=== PATIENT | female | born 1945 | race Caucasian/White ===

== ENCOUNTER 2016-03-09 15:00 | Inpatient (IN) | payer MEDICARE ==
[2016-03-09 21:00] VITALS: BP 162/81; PULSE 68; PULSE 72; RESP 18; TEMP 98.7; O2SAT 96
--- NOTE | 2016-03-09 21:06 | HHI.HP ---
History of Present Illness Chief Complaint: left foot pain and paresthesias after catheterization last week for left SFA in- stent restenosis.([place]) History of Present Illness 70 yr old female with hx of hypertension, DM, hyperlipidemia and tobacco use who has had pad symptoms of 1/2 block claudication treated with antiplatelet meds, antihypertensives and pletal with tobacco cessation 8 years ago. Peripheral interventions of her bilateral lower extremities for [address] Puentes. Most recent left SFA intervention (no report) with finding of left SFA in-stent restenosis and two vessel runoff via AT and Peroneal arteries. (CD:angio 03/08) Intervention to left lower extremity performed 7 days ago with pain and paresthesias post-procedure. Hospitalized 4 days ago and now on heparin drip and referred to us for evaluation. Past/Family/Social History Past Medical History DM Hyperlipidemia HTN PAD Past Surgical History LLE angioplasty Social History Occasional alcohol use. Family History Denies Coded Allergies: No Known Allergies (Unverified , 03/09/16) see list Family History with two children ([place]) Resides in [facility] Social History Occasional ETOH 50 pack year smoking hx (quit 8 yrs ago). Review of Systems Musculoskeletal: COMPLAINS OF: Joint pain, Muscle aches (left foot), Stiffness , Joint Swelling, Back pain, Neck pain Physical Exam Neuro: CN2-12 intact. Gross motor and sensory intact upper and lower extremities Can Dorsiflex without pain and move toes. Neck: no carotid bruits Heart: no murmurs, rubs or gallops Lungs: CTA bilaterally Abdomen: soft, ND Vascular: Radial pulses palpable bilaterally. multiphasic signals DP bilaterally. Monophasic signals PT bilaterally. Extremities: Left foot is warm. Two pea-sized lesions over the dorsum of the foot. Assessment and Plan Assessment: (1) PAD (peripheral artery disease) Status: Acute Plan Patient with PAD with multiple interventions with claudication. Now patient with reperfused left lower extremity.(warm with strong signals). With multiple failed interventions with in-stent restenosis we were consulted for possible bypass. Presently left lower extremity viable and reperfused. Suspect ischemia- reperfusion injury. Patient admitted for medical management with evaluation for future bypass. Will be restarted on home medication and add GI protection. Would continue pain medications Physical therapy. With multiple failed previous interventions will continue anticoagulation. Hardik Gonzales DO, FACS Video Control Operator of Vascular Surgery /[facility] [phone] Hardik Gonzales DO Mar 09, 2016 21:06
[2016-03-09 21:23] LABS: AUTOMATED NEUTROPHIL # 6.5 TH/MM3 (1.8-7.7); BASOPHIL # 0.1 TH/MM3 (0-0.2); BASOPHIL % 0.7 % (0.0-2.0); EOSINOPHIL # 0.1 TH/MM3 (0-0.4); EOSINOPHIL % 1.3 % (0.0-4.0); HEMATOCRIT 33.5 % (35.0-46.0); HEMO FLAGS DIFF FINAL; LYMPH % 11.2 % (9.0-44.0); LYMPHOCYTE # 0.9 TH/MM3 (1.0-4.8); MEAN CELL VOLUME 82.1 FL (80.0-100.0); MONO % 9.2 % (0.0-8.0); NEUT % 77.6 % (16.0-70.0); PLATELET COUNT 273 TH/MM3 (150-450); RED BLOOD COUNT 4.08 MIL/MM3 (4.00-5.30); RED CELL DISTRIBUTION WIDTH 13.8 % (11.6-17.2); WHITE BLOOD COUNT 8.4 TH/MM3 (4.0-11.0)
[2016-03-09 21:37] LABS: APTT (PATIENT) 29.4 SEC (24.3-30.1); PROTHROMBIN TIME - PATIENT 10.7 SEC (9.8-11.6)
[2016-03-09 22:00] VITALS: PULSE 75
[2016-03-09 22:00] LABS: BICARBONATE 29.3 MEQ/L (21.0-32.0); MAGNESIUM 1.4 MG/DL (1.5-2.5); POTASSIUM 3.5 MEQ/L (3.5-5.1)
[2016-03-09 23:00] VITALS: PULSE 77
[2016-03-09] MEDS ORDERED: SODIUM CHLORIDE FLUSH PRN IVF (23:00)
[2016-03-09] MEDS: DEXT 5%-NACL 0.9% 1000 ML INJ 1,000 ML IV SCH (23:00)
[2016-03-09] MEDS ORDERED: GLUCAGON 1 MG/ML VIAL OTHER PRN (23:00)
[2016-03-09] MEDS ORDERED: HEPARIN SODIUM - IV 10,000 UNITS/10 ML VIAL IV PRN ×2 (23:00)
[2016-03-09] MEDS ORDERED: DEXTROSE 50% IN WATER 50 ML VIAL(D50) IV PUSH PRN (23:00)
[2016-03-09] MEDS: metFORMIN HCL 500 MG TAB PO SCH (23:00)
[2016-03-09] MEDS: HEPARIN 25,000 UNITS-D5W 250 ML - PREMIX IV SCH (23:09)
[2016-03-09] MEDS: ATORVASTATIN 20 MG TAB PO SCH (23:13)
[2016-03-09] MEDS: ACETAMINOPHEN/HYDROcodone 325 MG/5 MG TAB PO PRN (23:14)
[2016-03-10] VITALS (22 sets, daily range): BP systolic 125–170; BP diastolic 64–83; PULSE 60–122; RESP 18; TEMP 97.5–99.2; O2SAT 95–98
[2016-03-10] MEDS: LOW DOSE INSULIN NOVOLOG SUPPLEMENTAL SCALE SQ SCH ×4 (05:56→20:43)
[2016-03-10 06:33] LABS: APTT (PATIENT) 40.8 SEC (24.3-30.1)
[2016-03-10] MEDS: SODIUM CHLORIDE FLUSH BID IVF SCH ×2 (09:00→20:34)
--- NOTE | 2016-03-10 09:06 | PD.VS.PN ---
Objective Vitals/I&O Date Time Temp Pulse Resp B/P Pulse Ox O2 Delivery O2 Flow Rate FiO2 03/10/16 07:00 97.7 62 18 141/70 95 03/10/16 06:00 72 03/10/16 05:00 66 03/10/16 04:00 61 03/10/16 04:00 98.7 77 18 161/83 98 03/10/16 03:00 66 03/10/16 02:00 72 03/10/16 01:00 72 03/10/16 00:00 65 03/10/16 00:00 98.5 79 18 170/78 98 03/09/16 23:00 77 03/09/16 22:00 75 03/09/16 21:00 68 03/09/16 21:00 98.7 72 18 162/81 96 Physical Exam feet warm bilaterally. Bilateral DP signals phasic. Laboratory Laboratory Tests Test 03/09/16 03/10/16 21:00 05:00 White Blood Count 8.4 Red Blood Count 4.08 Hemoglobin 11.0 Hematocrit 33.5 Mean Corpuscular Volume 82.1 Mean Corpuscular Hemoglobin 27.0 Mean Corpuscular Hemoglobin 33.0 Concent Red Cell Distribution Width 13.8 Platelet Count 273 Mean Platelet Volume 8.0 Neutrophils (%) (Auto) 77.6 Lymphocytes (%) (Auto) 11.2 Monocytes (%) (Auto) 9.2 Eosinophils (%) (Auto) 1.3 Basophils (%) (Auto) 0.7 Neutrophils # (Auto) 6.5 Lymphocytes # (Auto) 0.9 Monocytes # (Auto) 0.8 Eosinophils # (Auto) 0.1 Basophils # (Auto) 0.1 CBC Comment DIFF FINAL Differential Comment Prothrombin Time 10.7 Prothromb Time International 1.0 Ratio Activated Partial 29.4 40.8 Thromboplast Time Sodium Level 140 Potassium Level 3.5 Chloride Level 102 Carbon Dioxide Level 29.3 Anion Gap 9 Blood Urea Nitrogen 12 Creatinine 1.18 Estimat Glomerular Filtration 45 Rate Random Glucose 88 Calcium Level 9.5 Phosphorus Level 2.0 Magnesium Level 1.4 Assessment and Plan Assessment: (1) PAD (peripheral artery disease) Status: Acute Plan Patient with PAD with multiple interventions with claudication. Need for possible bypass left lower extremity for recurrent in-stent restenoses. Plan for follow duplex US of bilateral lower extremities Plan for angiogram tomorrow. Hardik Gonzales DO, FACS Loan Interviewer Mortgage of Vascular Surgery /[facility] [phone] Hardik Gonzales DO Mar 10, 2016 09:06
[2016-03-10] MEDS: ACETAMINOPHEN/HYDROcodone 325 MG/5 MG TAB PO PRN ×2 (09:09→20:52)
[2016-03-10] MEDS: glipiZIDE 10 MG TAB PO SCH (09:10)
[2016-03-10] MEDS: HYDROCHLOROTHIAZIDE 12.5 MG CAP PO SCH (09:10)
[2016-03-10] MEDS: LOSARTAN 50 MG TAB PO SCH (09:10)
[2016-03-10] MEDS: PANTOPRAZOLE SOD 40 MG DELAYED RELEASE TAB PO SCH (09:10)
[2016-03-10] MEDS: CLOPIDOGREL 75 MG TAB PO SCH (09:10)
[2016-03-10] MEDS: metFORMIN HCL 500 MG TAB PO SCH ×2 (09:10→20:51)
--- NOTE | 2016-03-10 12:36 | RADRPT ---
EXAM DATE/TIME: 03/10/2016 11:08 [facility] COMPARISON: No previous studies available for comparison. INDICATIONS : Lower extremity bypass Preop. MEDICAL HISTORY : Hypertension. PAD. Diabetic. Hyperlipidemia. SURGICAL HISTORY : Left lower extremity angioplasty. ENCOUNTER: Initial ACUITY: 1 week PAIN SCORE: 8/10 LOCATION: Bilateral leg. TECHNIQUE: Venous ultrasound of the left and right leg was performed from the inguinal ligament to the proximal calf. Real-time, color Doppler and spectral tracing, compression and augmentation techniques were us ed. FINDINGS: RIGHT LEG: There is normal compressibility of the deep venous system from the inguinal region to the proximal ca lf. No echogenic clot is seen in the lumen of the common femoral, femoral, popliteal, and posterior tibial veins. There is a normal response of the venous system to proximal and distal augmentation an d respiration. LEFT LEG: There is normal compressibility of the deep venous system from the inguinal region to the proximal ca lf. No echogenic clot is seen in the lumen of the common femoral, femoral, popliteal, and posterior tibial veins. There is a normal response of the venous system to proximal and distal augmentation an d respiration. CONCLUSION: Normal examination. Bharati Vargas MD on March 10, 2016 at 12:33 Board Certified Radiologist. This report was verified electronically.
--- NOTE | 2016-03-10 12:52 | RADRPT ---
EXAM DATE/TIME: 03/10/2016 11:23 [facility] COMPARISON: No previous studies available for comparison. INDICATIONS : Lower extremity bypass Preop. MEDICAL HISTORY : CAD, Diabetic. Hypertension. Hyperlipidemia. SURGICAL HISTORY : Left lower extremity angioplasty. ENCOUNTER: Initial ACUITY: 1 week PAIN SCORE: 8/10 LOCATION: Bilateral leg. GREATER SAPHENOUS VEIN THIGH: PROXIMAL: Right 5 mm Left 4 mm MID: Right 2 mm Left 2 mm DISTAL: Right 2 mm Left 2 mm CALF: PROXIMAL: Right 2 mm Left 4 mm MID: Right 2 mm Left 3 mm DISTAL: Right 2 mm Left 2 mm FINDINGS: The venous system of the lower extremities are patent by color Doppler imaging. Measurements of the leg veins (in mm) are listed above. CONCLUSION: Venous mapping as described above. Aquilino Montenegro MD FACR on March 10, 2016 at 12:50 Board Certified Radiologist. This report was verified electronically.
[2016-03-10] MEDS: DEXT 5%-NACL 0.9% 1000 ML INJ 1,000 ML IV SCH (13:31)
--- NOTE | 2016-03-10 18:38 | PD.VS.PN ---
Pre-operative Note Pre-operative diagnosis: PAD, L LE Planned procedure: Aortogram w/ L LE angiogram Labs: Laboratory Tests Test 03/09/16 03/10/16 03/10/16 21:00 05:00 10:52 White Blood Count 8.4 Red Blood Count 4.08 Hemoglobin 11.0 Hematocrit 33.5 Mean Corpuscular Volume 82.1 Mean Corpuscular Hemoglobin 27.0 Mean Corpuscular Hemoglobin 33.0 Concent Red Cell Distribution Width 13.8 Platelet Count 273 Mean Platelet Volume 8.0 Neutrophils (%) (Auto) 77.6 Lymphocytes (%) (Auto) 11.2 Monocytes (%) (Auto) 9.2 Eosinophils (%) (Auto) 1.3 Basophils (%) (Auto) 0.7 Neutrophils # (Auto) 6.5 Lymphocytes # (Auto) 0.9 Monocytes # (Auto) 0.8 Eosinophils # (Auto) 0.1 Basophils # (Auto) 0.1 CBC Comment DIFF FINAL Differential Comment Prothrombin Time 10.7 Prothromb Time International 1.0 Ratio Activated Partial 29.4 40.8 41.0 Thromboplast Time Sodium Level 140 Potassium Level 3.5 Chloride Level 102 Carbon Dioxide Level 29.3 Anion Gap 9 Blood Urea Nitrogen 12 Creatinine 1.18 Estimat Glomerular Filtration 45 Rate Random Glucose 88 Calcium Level 9.5 Phosphorus Level 2.0 Magnesium Level 1.4 Blood: none needed EKG: not needed Imaging: Last 48 hours Impressions Lower Extremity Ultrasound 03/10/16 0000 Signed Impressions: Service Date/Time: Thursday, March 10, 2016 11:08 - CONCLUSION: Normal examination. Bharati Vargas MD Lower Extremity Ultrasound 03/10/16 0000 Signed Impressions: Service Date/Time: Thursday, March 10, 2016 11:23 - CONCLUSION: Venous mapping as described above. Aquilino Montenegro MD FACR Post-operative destination: DOCU, then floor Operative site marked: No (Will francis in AM (Day of surgery)) Consent: I discussed the procedure with the patient and she agrees Sushant Samuels MD Mar 10, 2016 18:38
[2016-03-10] MEDS: ATORVASTATIN 20 MG TAB PO SCH (20:52)
[2016-03-11] VITALS (20 sets, daily range): BP systolic 110–158; BP diastolic 58–72; PULSE 66–76; RESP 17–18; TEMP 96.7–98.9; O2SAT 93–98
[2016-03-11] MEDS: DEXT 5%-NACL 0.9% 1000 ML INJ 1,000 ML IV SCH ×3 (01:40→22:28)
[2016-03-11 06:18] LABS: APTT (PATIENT) 50.6 SEC (24.3-30.1)
[2016-03-11] MEDS: LOW DOSE INSULIN NOVOLOG SUPPLEMENTAL SCALE SQ SCH ×4 (06:21→20:33)
--- NOTE | 2016-03-11 07:42 | PD.VS.PN ---
Subjective Subjective/Hospital Course Pt feels well today. Foot hurt slightly overnight but walked to BR without difficulty. Motor intact. Objective Vitals/I&O Date Time Temp Pulse Resp B/P Pulse Ox O2 Delivery O2 Flow Rate FiO2 03/11/16 06:00 71 03/11/16 04:00 98.9 71 18 139/65 93 03/11/16 04:00 71 03/11/16 01:00 71 03/11/16 00:00 71 03/10/16 23:00 98.8 71 18 140/64 98 03/10/16 19:00 75 03/10/16 19:00 99.2 75 18 156/68 98 03/10/16 18:00 77 03/10/16 17:00 72 03/10/16 16:00 72 03/10/16 15:00 68 03/10/16 15:00 97.5 66 18 139/64 95 03/10/16 14:00 67 03/10/16 13:00 70 03/10/16 12:00 68 03/10/16 11:00 67 03/10/16 11:00 97.7 72 18 125/76 97 03/10/16 10:00 67 03/10/16 09:00 72 03/10/16 08:00 60 03/11/16 03/11/16 03/11/16 07:00 15:00 23:00 Intake Total 1068 ml Balance 1068 ml Physical Exam Palpable femoral pulse Foot chronically moderately ischemic. Motor intact. No tissue loss. + atrophic muscles but no rubor Laboratory Laboratory Tests Test 03/10/16 03/11/16 10:52 05:29 Activated Partial 41.0 50.6 Thromboplast Time Imaging Last 48 hours Impressions Lower Extremity Ultrasound 03/10/16 0000 Signed Impressions: Service Date/Time: Thursday, March 10, 2016 11:08 - CONCLUSION: Normal examination. Bharati Vargas MD Lower Extremity Ultrasound 03/10/16 0000 Signed Impressions: Service Date/Time: Thursday, March 10, 2016 11:23 - CONCLUSION: Venous mapping as described above. Aquilino Montenegro MD FACR Assessment and Plan Assessment: (1) PAD (peripheral artery disease) Status: Chronic Plan Patient with PAD with multiple interventions Now with pain that may be rest pain but I don't think so. ABIs today Angiogram today. potential d/c tomorrow. Discharge Planning possible 03/12 Sushant Samuels MD Mar 11, 2016 07:42
[2016-03-11] MEDS: SODIUM CHLORIDE FLUSH BID IVF SCH ×2 (09:00→20:26)
--- NOTE | 2016-03-11 09:52 | RADRPT ---
EXAM DATE/TIME: 03/11/2016 00:00 [facility] COMPARISON: No previous studies available for comparison. INDICATIONS : BL PVD LEFT LEG WORSE THAN RIGHT TECHNIQUE: Five-station segmental examination of the lower extremities was performed. Pulsed-cuff waveform tracings and pressures were recorded. Ankle-brachial indices and toe-brachial indices were calculated. PRESSURES (mmHg): Brachial (arm): Right 144 Lower Thigh: Right 84 Left 110 Calf: Right 63 Left 68 Ankle: Right 42 Left 51 Toe: Right 0 Left 26 [place]: Right 0.29 Left 0.35 TBI: Right 0 Left 0.18 PULSED CUFF WAVEFORMS: Demonstrate normal amplitude bilaterally. CONCLUSION: Markedly diminished ABIs with segmental pressures indicative of hemodynamically significant steno-occ lusive arterial disease in the iliac and infrapopliteal vessels. Jacob Michele MD on March 11, 2016 at 9:48 Board Certified Radiologist. This report was verified electronically.
[2016-03-11] MEDS: LOSARTAN 50 MG TAB PO SCH (09:55)
[2016-03-11] MEDS: PANTOPRAZOLE SOD 40 MG DELAYED RELEASE TAB PO SCH (09:55)
[2016-03-11] MEDS: CLOPIDOGREL 75 MG TAB PO SCH (09:55)
[2016-03-11] MEDS: HYDROCHLOROTHIAZIDE 12.5 MG CAP PO SCH (09:55)
[2016-03-11] MEDS: metFORMIN HCL 500 MG TAB PO SCH ×2 (09:55→20:27)
[2016-03-11] MEDS: glipiZIDE 10 MG TAB PO SCH (12:20)
[2016-03-11] MEDS: HEPARIN 25,000 UNITS-D5W 250 ML - PREMIX IV SCH (12:21)
[2016-03-11] MEDS ORDERED: MIDAZOLAM HCL 2 MG/2 ML VIAL ONE (12:47)
[2016-03-11] MEDS ORDERED: HEPARIN-NS/PF INJ 500 ML ONE (12:47)
[2016-03-11] MEDS ORDERED: IOHEXOL 350 MG/ML 100 ML BTL (for Cath Lab) OTHER ONE (13:00)
--- NOTE | 2016-03-11 13:15 | HHI.PR ---
Immediate Post Op Note Procedure Date: Mar 11, 2016 Pre Op Diagnosis: (1) PAD (peripheral artery disease) Post Op Diagnosis: (1) PAD (peripheral artery disease) Surgeon: Sushant Samuels Marketing Analytics Manager(s): none Procedure: Aortogram w/ L LE angiogram Findings: No Aorto-iliac occlusive disease Occluded L SFA with stents Re-constituted popliteal artery Peroneal artery dominant runoff Will need L fem-BK pop bypass Additional Information: if her foot is ok tonight, she wants to go home tomorrow and I'll bring her to clinic to discuss timing of surgery Complications: none apparent Specimen(s) removed: none Estimated blood loss: 10 mL Anesthesia: MAC Drains: None Patient to: Other (DOCU) Patient Condition: Good Implant/Devices: SEE IMPLANT LOG (if applicable) Date/Time of Procedure: SEE SURGICAL CARE RECORD Sushant Samuels MD Mar 11, 2016 13:15
[2016-03-11] MEDS ORDERED: MORPHINE SULFATE 4 MG/ML INJ IV PUSH PRN (15:00)
[2016-03-11] MEDS ORDERED: ONDANSETRON HCL 4 MG/2 ML VIAL IV PUSH PRN (15:00)
[2016-03-11] MEDS: ATORVASTATIN 20 MG TAB PO SCH (20:27)
[2016-03-11] MEDS: ACETAMINOPHEN/HYDROcodone 325 MG/5 MG TAB PO PRN (20:33)
[2016-03-12] VITALS: PULSE 68
[2016-03-12 04:00] VITALS: BP 145/66; PULSE 70; RESP 18; TEMP 98.9; O2SAT 97
[2016-03-12 05:00] VITALS: PULSE 70
[2016-03-12] MEDS: LOW DOSE INSULIN NOVOLOG SUPPLEMENTAL SCALE SQ SCH ×2 (05:48→11:00)
[2016-03-12 07:00] VITALS: BP 142/67; PULSE 64; PULSE 74; RESP 20; TEMP 97.7; O2SAT 97
[2016-03-12 07:26] LABS: HEMATOCRIT 30.1 % (35.0-46.0); MEAN CELL VOLUME 83.1 FL (80.0-100.0); MEAN CORPUSCULAR HEMOGLOBIN 27.5 PG (27.0-34.0); MEAN CORPUSCULAR HGB CONC 33.1 % (32.0-36.0); PLATELET COUNT 273 TH/MM3 (150-450); RED BLOOD COUNT 3.62 MIL/MM3 (4.00-5.30); REVIEW FLAG FINAL; WHITE BLOOD COUNT 8.7 TH/MM3 (4.0-11.0)
[2016-03-12 07:38] LABS: APTT (PATIENT) 28.1 SEC (24.3-30.1)
[2016-03-12] MEDS: metFORMIN HCL 500 MG TAB PO SCH (09:00)
[2016-03-12] MEDS: glipiZIDE 10 MG TAB PO SCH (09:00)
[2016-03-12] MEDS: PANTOPRAZOLE SOD 40 MG DELAYED RELEASE TAB PO SCH (09:54)
[2016-03-12] MEDS: LOSARTAN 50 MG TAB PO SCH (09:55)
[2016-03-12] MEDS: CLOPIDOGREL 75 MG TAB PO SCH (09:56)
[2016-03-12] MEDS: HYDROCHLOROTHIAZIDE 12.5 MG CAP PO SCH (09:56)
[2016-03-12] MEDS: SODIUM CHLORIDE FLUSH BID IVF SCH (09:56)
--- NOTE | 2016-03-12 09:57 | PD.VS.DC ---
Discharge Summary Admission Date: Mar 09, 2016 at 15:00 Discharge Date: Mar 12, 2016 Admission Diagnosis: (1) PAD (peripheral artery disease) Discharge Diagnosis: (1) PAD (peripheral artery disease) Status: Chronic Brief History from admission 70 yr old female with hx of hypertension, DM, hyperlipidemia and tobacco use who has had pad symptoms of 1/2 block claudication treated with antiplatelet meds, antihypertensives and pletal with tobacco cessation 8 years ago. Peripheral interventions of her bilateral lower extremities for [address] Puentes. Most recent left SFA intervention (no report) with finding of left SFA in-stent restenosis and two vessel runoff via AT and Peroneal arteries. (CD:angio 03/08) Intervention to left lower extremity performed 7 days ago with pain and paresthesias post-procedure. Hospitalized 4 days ago and now on heparin drip and referred to us for evaluation. Procedure(s): Aortogram w/ L LE angiogram Significant Findings Laboratory Tests Test 03/09/16 03/10/16 03/10/16 03/11/16 21:00 05:00 10:52 05:29 Hemoglobin 11.0 GM/DL (11.6-15.3) Hematocrit 33.5 % (35.0-46.0) Neutrophils (%) (Auto) 77.6 % (16.0-70.0) Monocytes (%) (Auto) 9.2 % (0.0-8.0) Lymphocytes # (Auto) 0.9 TH/MM3 (1.0-4.8) Creatinine 1.18 MG/DL (0.50-1.00) Estimat Glomerular Filtration 45 ML/MIN (>89) Rate Phosphorus Level 2.0 MG/DL (2.5-4.9) Magnesium Level 1.4 MG/DL (1.5-2.5) Activated Partial 40.8 SEC 41.0 SEC 50.6 SEC Thromboplast Time (24.3-30.1) (24.3-30.1) (24.3-30.1) Test 03/12/16 06:39 Red Blood Count 3.62 MIL/MM3 (4.00-5.30) Hemoglobin 10.0 GM/DL (11.6-15.3) Hematocrit 30.1 % (35.0-46.0) Hospital Course: GENERAL: Pt resting on st comfortably alert and oriented in nad, gcs 15 SKIN: Warm and dry, LE warm and dry with positive pedal pulses, dressing to right groin intact clean and dry HEAD: Normocephalic. EYES: No scleral icterus. No injection or drainage. NECK: Supple, trachea midline. No JVD or lymphadenopathy. CARDIOVASCULAR: Regular rate and rhythm without murmurs, gallops, or rubs. RESPIRATORY: Breath sounds equal bilaterally. No accessory muscle use. MUSCULOSKELETAL: No cyanosis, or edema. Discharge Condition: Good Discharge Disposition: Discharge Home Discharge Instructions: Follow up in the office on 04/02/16 Continue home medications Remove dressing to right groin tomorrow am Call the office should any questions or concerns develop Any questions or concerns: Call [facility] Heart and Vascular Surgery at [facility] [phone] Jessy Olivo Mar 12, 2016 09:57
[2016-03-12] MEDS ORDERED: GLIP10TA6 PO (11:01)
[2016-03-12] MEDS ORDERED: METF1000 PO (11:01)
[2016-03-12] MEDS ORDERED: LOSA100T3 PO (11:01)
[2016-03-12] MEDS ORDERED: PLAV75TA29 PO (11:01)
[2016-03-12] MEDS ORDERED: ATOR20TA15 PO (11:01)
--- NOTE | 2016-03-12 11:18 | MP ---
cc: SUSHANT SAMUELS MD DATE OF SURGERY: 03/11/2016 PREOPERATIVE DIAGNOSIS Peripheral arterial occlusive disease. POSTOPERATIVE DIAGNOSIS Peripheral arterial occlusive disease. PROCEDURE Aortogram with left lower extremity angiogram. ATTENDING SURGEON Sushant Samuels MINERAL ORE PROCESSING LABOURER None. ANESTHESIA Local with sedation. INDICATION Mrs. Ordaz is a 70-year-old female who has previous peripheral vascular intervention. She presented with rest pain, although this has abated somewhat. She has ABIs in the 0.3 range and is taken to the operating room for angiographic evaluation and treatment. There is no prior imaging available for my review. DESCRIPTION OF PROCEDURE Informed consent was obtained from the patient. She was taken to the operating room and placed supine on the operating table. An appropriate timeout was taken to ensure the patient's identity, the operative site and planned procedure. The administration of antibiotics was not necessary as this was a clean procedure without implantation or any foreign object. Everyone in the room agreed with the timeout and we proceeded. Her bilateral groins were prepped and draped and the right groin was anesthetized with 1% lidocaine. A 21-gauge micropuncture needle was used to access the right common femoral artery. This was exchanged using a Seldinger technique for a micropuncture sheath through which a 0.035 Glidewire was introduced. The micropuncture sheath was exchanged for a 5 [place] sheath and a VCF catheter was placed over the wire into the sheath and aortogram and pelvic arteriograms obtained. The Glidewire was reintroduced and navigated down to the left common femoral artery. The VCF catheter was advanced over this and left lower extremity arteriograms obtained. The wire and catheter were removed. The sheath was flushed. It will be removed in the recovery room. There were no complications. I was present and scrubbed and performed the entire procedure. DESCRIPTION OF IMAGES The patient has patent renal arteries, patent infrarenal aorta, patent common iliac arteries, hypogastric artery and external iliac artery arteries. None of these have any hemodynamically significant stenoses. The left common femoral artery and profunda are patent. The SFA is occluded. There is evidence of old stents. Profunda-based collaterals reconstitute the popliteal artery. The below knee popliteal artery is of adequate caliber. The peroneal artery is the dominant runoff to the foot with a very diminutive posterior tibial artery that reconstitutes via peroneal collaterals. MD SAURAV Zacarias /1:20 PM /10:55 AM [facility]
--- NOTE | 2016-04-01 13:48 | PD.VS.DC ---
Discharge Summary Admission Date: Mar 09, 2016 at 15:00 Discharge Date: Mar 12, 2016 Admission Diagnosis: (1) PAD (peripheral artery disease) Discharge Diagnosis: (1) PAD (peripheral artery disease) Status: Chronic Brief History from admission 70 yr old female with hx of hypertension, DM, hyperlipidemia and tobacco use who has had pad symptoms of 1/2 block claudication treated with antiplatelet meds, antihypertensives and pletal with tobacco cessation 8 years ago. Peripheral interventions of her bilateral lower extremities for [address] Puentes. Most recent left SFA intervention (no report) with finding of left SFA in-stent restenosis and two vessel runoff via AT and Peroneal arteries. (CD:angio 03/08) Intervention to left lower extremity performed 7 days ago with pain and paresthesias post-procedure. Hospitalized 4 days ago and now on heparin drip and referred to us for evaluation. Procedure(s): Aortogram w/ L LE angiogram Significant Findings GENERAL: SKIN: Warm and dry. HEAD: Normocephalic. NECK: Supple, trachea midline. No JVD or lymphadenopathy. CARDIOVASCULAR: Regular rate and rhythm without murmurs, gallops, or rubs. RESPIRATORY: Breath sounds equal bilaterally. No accessory muscle use. GASTROINTESTINAL: Abdomen soft, non-tender, nondistended. Hospital Course: Labs reviewed pt ok to D/C Discharge Condition: Good Discharge Disposition: Discharge Home Discharge Instructions: Follow-up in out patient clinic Call the office for any concerns or questions Any questions or concerns: Call [facility] Heart and Vascular Surgery at [facility] [phone] Jessy Olivo Apr 01, 2016 13:48
== END 2016-03-12 12:19 | disposition home or self-care (01) | DRG 301 ==
LOC: HCIN 15:00 → HCPC 03-10 17:11
PROVIDERS: ADMIT Surgery; ATTEND Surgery
PROC: B41D1ZZ Fluoroscopy of Aorta and Bilateral Lower Extremity Arteries using Low Osmolar Contrast (ICD-10-PCS; principal; 2016-03-11 13:00)
DX: I73.9 Peripheral vascular disease, unspecified (principal); E11.9 Type 2 diabetes mellitus without complications; I10 Essential (primary) hypertension; E78.5 Hyperlipidemia, unspecified; Z87.891 Personal history of nicotine dependence
CPT/HCPCS: 36245; 75625; 75710; 80048; 82948; 83735; 84100; 85002; 85025; 85027; 85610; 85730; 93923; 93970; 93998; C1769; C1893; J1644; J1815; J2250; J2270; J2405; J3010; J7042; Q9967

== ENCOUNTER 2016-05-11 11:48 | Day surgery (SDC) | payer MEDICARE ==
[~2016-05-11] VITALS: Ht 166.4 cm; Wt 90.0 kg
[~2016-05-11 11:48] MED LIST: ATOR20TA15 PO; GLIP10TA6 PO; LOSA100T3 PO; METF1000 PO; PLAV75TA29 PO
[2016-05-11] MEDS ORDERED: SODIUM CHLOR 0.9% 1000 ML INJ 1,000 ML IV SCH (12:30)
[2016-05-11] MEDS ORDERED: SODIUM CHLORIDE 0.9% FLUSH 5 ML FLUSH IV FLUSH PRN (12:30)
[2016-05-11] MEDS ORDERED: SODIUM BICARBONATE 100 MEQ in D5W 1000 ML IV SCH (12:30)
[2016-05-11] MEDS ORDERED: GABA300C5 PO (12:37)
[2016-05-11 12:38] VITALS: BP 150/81; PULSE 86; RESP 16; TEMP 98.4; O2SAT 97
[2016-05-11 12:46] LABS: AUTOMATED NEUTROPHIL # 5.5 TH/MM3 (1.8-7.7); BASOPHIL # 0.1 TH/MM3 (0-0.2); BASOPHIL % 0.7 % (0.0-2.0); EOSINOPHIL # 0.1 TH/MM3 (0-0.4); EOSINOPHIL % 0.7 % (0.0-4.0); HEMATOCRIT 34.5 % (35.0-46.0); HEMO FLAGS DIFF FINAL; MEAN CELL VOLUME 81.3 FL (80.0-100.0); MEAN CORPUSCULAR HEMOGLOBIN 27.1 PG (27.0-34.0); MEAN CORPUSCULAR HGB CONC 33.4 % (32.0-36.0); MONO % 9.2 % (0.0-8.0); NEUT % 75.4 % (16.0-70.0); PLATELET COUNT 405 TH/MM3 (150-450); RED BLOOD COUNT 4.24 MIL/MM3 (4.00-5.30); RED CELL DISTRIBUTION WIDTH 14.4 % (11.6-17.2); WHITE BLOOD COUNT 7.3 TH/MM3 (4.0-11.0)
[2016-05-11 12:58] LABS: APTT (PATIENT) 29.6 SEC (24.3-30.1); PROTHROMBIN TIME - PATIENT 10.6 SEC (9.8-11.6)
[2016-05-11 13:05] LABS: BICARBONATE 24.5 MEQ/L (21.0-32.0); POTASSIUM 4.1 MEQ/L (3.5-5.1)
[2016-05-11] MEDS ORDERED: IOHEXOL 350 MG/ML 100 ML BTL (for Cath Lab) OTHER ONE (13:48)
[2016-05-11] MEDS ORDERED: HEPARIN-NS/PF INJ 500 ML ONE (13:51)
[2016-05-11] MEDS ORDERED: MIDAZOLAM HCL 2 MG/2 ML VIAL ONE ×3 (13:51→14:25)
[2016-05-11] MEDS ORDERED: HEPARIN SODIUM - IV 10,000 UNITS/10 ML VIAL ONE (13:52)
--- NOTE | 2016-05-11 15:01 | HHI.PR ---
Immediate Post Op Note Procedure Date: May 11, 2016 Pre Op Diagnosis: PAD B LE with L LE tissue loss Post Op Diagnosis: PAD B LE with L LE tissue loss Surgeon: Sushant Samuels Communications Designer(s): none Procedure: Aortogram w/ B LE angiogram L SFA RECRUITER ACCOUNT MANAGER (5mm for ISR) Findings: 1. Occluded L SFA stents, recanalized and RECRUITER ACCOUNT MANAGER; 3V runoff 2. Occluded R SFA stents Complications: none apparent Specimen(s) removed: none Estimated blood loss: 10 mL Anesthesia: MAC Drains: None Patient to: Other (DOCU) Date/Time of Procedure: SEE SURGICAL CARE RECORD Sushant Samuels MD May 11, 2016 15:01
--- NOTE | 2016-05-11 15:50 | PD.VS.PN ---
Subjective Subjective/Hospital Course s/p B LE angiogram and L SFA COMMISSIONS ANALYST Looks good, no complaints in DOCU Objective Vitals/I&O Date Time Temp Pulse Resp B/P Pulse Ox O2 Delivery O2 Flow Rate FiO2 05/11/16 12:38 98.4 86 16 150/81 97 Physical Exam R groin ok Strong DP signal L foot Laboratory Laboratory Tests Test 05/11/16 12:26 White Blood Count 7.3 Red Blood Count 4.24 Hemoglobin 11.5 Hematocrit 34.5 Mean Corpuscular Volume 81.3 Mean Corpuscular Hemoglobin 27.1 Mean Corpuscular Hemoglobin 33.4 Concent Red Cell Distribution Width 14.4 Platelet Count 405 Mean Platelet Volume 8.2 Neutrophils (%) (Auto) 75.4 Lymphocytes (%) (Auto) 14.0 Monocytes (%) (Auto) 9.2 Eosinophils (%) (Auto) 0.7 Basophils (%) (Auto) 0.7 Neutrophils # (Auto) 5.5 Lymphocytes # (Auto) 1.0 Monocytes # (Auto) 0.7 Eosinophils # (Auto) 0.1 Basophils # (Auto) 0.1 CBC Comment DIFF FINAL Differential Comment Prothrombin Time 10.6 Prothromb Time International 1.0 Ratio Activated Partial 29.6 Thromboplast Time Sodium Level 139 Potassium Level 4.1 Chloride Level 105 Carbon Dioxide Level 24.5 Anion Gap 10 Blood Urea Nitrogen 26 Creatinine 1.39 Estimat Glomerular Filtration 37 Rate Random Glucose 134 Calcium Level 9.8 Assessment and Plan Plan d/c today after plavix load (150mg) RTC 2 weeks. I will call her tomorrow to confirm Sushant Samuels MD May 11, 2016 15:49
[2016-05-11] MEDS ORDERED: CLOPIDOGREL 75 MG TAB PO ONE (16:00)
[2016-05-11] MEDS ORDERED: SODIUM CHLORIDE 0.9% FLUSH 5 ML FLUSH IV FLUSH SCH (21:00)
--- NOTE | 2016-05-13 13:11 | MP ---
cc: SUSHANT SAMUELS MD DATE OF SURGERY 05/11/2016 PREOPERATIVE DIAGNOSIS Bilateral lower extremity rest pain peripheral arterial occlusive disease, left lower extremity tissue loss. POSTOPERATIVE DIAGNOSIS Bilateral lower extremity rest pain peripheral arterial occlusive disease, left lower extremity tissue loss. PROCEDURE 1. Bilateral lower extremity angiograms. 2. Left SFA angioplasty. ATTENDING SURGEON Sushant Samuels MD HYDROLOGY PROFESSOR None. ANESTHESIA Local with sedation. INDICATIONS FOR PROCEDURE Ms. Ordaz is a 70-year-old lady who has left lower extremity tissue loss and failed intervention previously. She was taken to the operating room for angiographic evaluation and treatment. There was no prior catheterization or imaging available for my review. DESCRIPTION OF PROCEDURE Informed consent was obtained from the patient. She was taken to the operating room and placed supine on the operating room table. An appropriate time-out was taken to identify the patient, the operative site and the procedure. The administration of antibiotics was not necessary since it is a clean procedure and we do not plan the implantation of any foreign object. Everyone in the room agreed with the time-out and we proceeded. Her bilateral groins were prepped and draped and the right groin was anesthetized with 1% lidocaine. A 21-gauge micropuncture needle was used to access the right common femoral artery. This was exchanged using Seldinger technique through the micropuncture sheath through which a 0.025 Glidewire was introduced. The micropuncture sheath was exchanged for a 4-Afghan sheath and a VCF catheter was placed over the wire into the sheath. The Glidewire was introduced, navigated down to the left common femoral artery. The VCF catheter was advanced over this and left lower extremity arteriogram was obtained. The patient was systemically heparinized with 5000 units of IV heparin. A Garrett wire was introduced. The VCF catheter and 4-Afghan sheath were removed and the 6-Afghan, 35-cm Ansell sheath was introduced. A CA5 catheter was placed over the wire and through the sheath and the wire was exchanged for a DIGITAL CIRCUIT DESIGNER wire. With the DIGITAL CIRCUIT DESIGNER and CXI, we were able to navigate down to the mid-stent and then the DIGITAL CIRCUIT DESIGNER was exchanged for a Glidewire which was enabled us to navigate through the remainder of the stent. We entered the true lumen of the popliteal artery and the catheter was advanced over this and the angiogram confirmed we were indeed in the true lumen. The Garrett wire was introduced and the entire stent proximally and distally were angioplastied with a 5-mm balloon. At the completion of the angiogram there was excellent result with no recoil or extravastation. The runoff was three vessels to the ankle. The wire, catheter and sheath were removed and the 6-Afghan short sheath was placed in the right groin and a right lower extremity angiogram was obtained. This showed the patient had occluded SFA stents but patent reconstitution of the distal SFA. There was maintained distal runoff. The 6-Afghan sheath on the right was removed and AngioSeal was used to close the groins. There were no complications. I was present and scrubbed for the entire procedure. Sushant Samuels MD RJF/SSB /3:08 PM /12:47 PM RACHEL
== END 2016-05-11 19:09 | disposition home or self-care (01) ==
LOC: HDOC 11:48 → HDIC 11:50 → HDOC 19:09
PROVIDERS: ATTEND Surgery
DX: I70.723 Atherosclerosis of other type of bypass graft(s) of the extremities with rest pain, bilateral legs (principal); Z79.02 Long term (current) use of antithrombotics/antiplatelets
CPT/HCPCS: 37224; 75716; 80048; 85025; 85610; 85730; C1725; C1751; C1769; C1893; G0269; J1644; J2250; J3010; J7070; Q9967